=== PATIENT | female | born 1960 | race Caucasian/White ===

== ENCOUNTER 2016-05-22 13:20 | Emergency (ER) | payer MEDICARE, OTHER ==
[~2016-05-22] VITALS: Ht 152.4 cm; Wt 72.5 kg
[~2016-05-22 13:20] MED LIST: ASPI-664 PO; ESCI10TA48 PO; SMV40T PO
[2016-05-22 13:30] VITALS: Ht 152.4 cm; Wt 72.5 kg
[2016-05-22] MEDS ORDERED: METOCLOPRAMIDE 10 MG INJ IV STA (13:57)
[2016-05-22] MEDS ORDERED: DIPHENHYDRAMINE 50 MG INJ IV STA (13:57)
[2016-05-22] MEDS ORDERED: HYDROmorphONE 1 MG/ML SYG IV STA (13:57)
[2016-05-22 14:43] LABS: ADD SCAN DIFF NO
[2016-05-22 14:50] LABS: BASOPHILS % 0.3 % (0.0-2.0); EOSINOPHILS # 0.6 10^3/ul (0.0-0.5); EOSINOPHILS % 5.6 % (0.0-7.0); HEMATOCRIT 39.2 % (37.0-47.0); HEMOGLOBIN 13.6 g/dl (12.0-16.0); LYMPHOCYTES % 39.7 % (15.0-51.0); MEAN CORPUSCULAR HEMOGLOBIN 32.1 pg (29.0-33.0); MEAN CORPUSCULAR HGB CONC 34.7 g/dl (32.0-37.0); MEAN CORPUSCULAR VOLUME 92.5 fl (82.0-101.0); MEAN PLATELET VOLUME 11.8 fl (7.4-10.4); MONOCYTES % 9.5 % (0.0-11.0); NEUTROPHIL # 4.5 10^3/ul (1.6-7.5); NEUTROPHILS % 44.7 % (39.0-77.0); PLATELET COUNT 212 10^3/UL (140-415); RED BLOOD COUNT 4.24 10^6/ul (4.20-5.40); RED CELL DISTRIBUTION WIDTH 12.2 % (11.5-14.5)
--- NOTE | 2016-05-22 14:52 | RADRPT ---
PROCEDURE: CT Brain without contrast. CLINICAL INDICATION: Headache. History of cerebrovascular accident in the year 2011. TECHNIQUE: A CT of the brain without contrast was performed utilizing axial sections from the skul l base through the vertex. The patient was scanned without intravenous contrast enhancement. Sagitta l and coronal reformatted images were obtained using the data from the axial images. Total exam DLP is 730.20 mGy-cm. CTDIvol is 44.68 mGy. One or more of the following dose reduction techniques we re used: Automated exposure control, adjustment of the mA and/or kV according to patient size, use o f iterative reconstruction technique. COMPARISON: None available FINDINGS: There is an old infarct with encephalomalacia in the left temporal lobe anteriorly extending into th e left parietal lobe and left posterior frontal lobe consistent with an old left middle cerebral art kayley infarct. There is ex vacuo enlargement of the left lateral ventricle. There is no evidence of recent infarct. The laurent and white matter differentiation is otherwise normal. The ventricles are otherwise unremarkable. There is no midline shift. There is no intracranial hemorrhage or space-occupying lesion. There is no skull fracture or lytic lesion. IMPRESSION: 1. 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 2. Ex vacuo enlargement of the left lateral ventricle. 3. No recent infarct or intracranial hemorrhage. 4. Otherwise unremarkable noncontrast CT scan of the brain. RPTAT: QQ .Jonathan Bergman MD, Date Time Electronically viewed and signed by .Jonathan Bergman MD, on 05/22/2016 14:51 .R/
[2016-05-22 15:11] LABS: POTASSIUM 4.2 mmol/L (3.5-5.1)
[2016-05-22 15:14] LABS: CREATININE 0.62 mg/dl (0.44-1.00)
[2016-05-22] MEDS ORDERED: HYDR-902 PO (15:57)
[2016-05-22] MEDS ORDERED: MECL-77 PO (15:57)
[2016-05-22] MEDS ORDERED: MECLIZINE 12.5 MG TAB PO ONE (16:00)
--- NOTE | 2016-05-22 16:04 | ERD ---
ER Documentation Chief Complaint Date/Time DATE: 05/22/16 TIME: 16:00 Chief Complaint MOONEY vertigo. body pain HPI Female complains of day 3 of off and on vertigo. She says the vertigo is strong and severe has no nausea or vomiting. She also complains of a headache diffuse this morning that she has had many times before in the past with a similar pattern. She does have some phonophobia but no photophobia or fever. Patient says that her whole body hurts. No cough no dysuria. Patient has a prior stroke with right-sided deficits are more than leg. No difficulty swallowing or speaking or visual change no worsening weakness or numbness on the right side, left side is asymptomatic. ROS All systems reviewed and are negative except as per history of present illness. Medications Home Meds Active Scripts Hydrocodone/Acetaminophen ([place] 10-325 Tablet) 1 Each Tablet, 1 TAB PO Q6H Y for PAIN, #20 TAB Prov:MARGARITA PHAM DO 05/22/16 Meclizine Hcl* (Meclizine Hcl*) 25 Mg Tablet, 25 MG PO TID, #30 TAB Prov:MARGARITA PHAM DO 05/22/16 Reported Medications Aspirin* (Aspirin* (EC)) 81 Mg Tablet.dr, 81 MG PO DAILY, TAB 06/03/14 Discontinued Reported Medications Escitalopram Oxalate* (Escitalopram Oxalate*) 10 Mg Tablet, 10 MG PO DAILY, TAB 06/03/14 Simvastatin (Simvastatin) 40 Mg Tablet, 40 MG PO HS, TAB 06/03/14 Allergies Allergies: Coded Allergies: No Known Allergy (Unverified , 05/22/16) PMhx/Soc History of Surgery: Yes (C SECTION) Anesthesia Reaction: No Hx Neurological Disorder: Yes (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) Hx Respiratory Disorders: No Hx Cardiac Disorders: Yes (HIGH CHOL, HTN) Hx Psychiatric Problems: Yes (DEPRESSION, NOT ON MEDS NOW) Hx Miscellaneous Medical Probl: No Hx Alcohol Use: No Hx Substance Use: No Hx Tobacco Use: No Smoking Status: Never smoker FmHx Family History: No coronary disease Physical Exam Vitals Vital Signs Date Time Temp Pulse Resp B/P Pulse Ox O2 Delivery O2 Flow Rate FiO2 05/22/16 13:30 99.0 92 18 180/93 97 Physical Exam Const: Well-developed, well-nourished Head: Atraumatic, normocephalic Eyes: Normal Conjunctiva, PERRLA, EOMI, normal sclera, no nystagmus ENT: Normal External Ears, Nose and Mouth, moist mucus membranes. Neck: Full range of motion. No meningismus, no lymphadenopathy. Resp: Clear to auscultation bilaterally, no wheezing, rhonchi, rales Cardio: Regular rate and rhythm, no murmurs, S1 S2 present Abd: Soft, non tender x 4, non distended. Normal bowel sounds, no guarding or rebound, no pulsitile abdominal masses or bruits Skin: No petechiae or rashes, no ecchymosis , no maculopapular rash Back: No midline or flank tenderness Ext: No cyanosis, or edema, FROM x 4, normal inspection, neurovascularly intact x 4 Neur: Awake and alert, STR 4/5 x 2 , 5/5 on the left, sensation intact x 4, , cerebellum intact Psych: Anxious Result Diagram: 05/22/16 1440 05/22/16 1440 Results 24 hrs Laboratory Tests Test 05/22/16 14:40 Anion Gap 16 Basophils # 0.010^3/ul Basophils % 0.3% Blood Urea Nitrogen 11mg/dl Calcium Level 10.0mg/dl Carbon Dioxide Level 28mmol/L Chloride Level 106mmol/L Creatinine 0.62mg/dl Eosinophils # 0.610^3/ul Eosinophils % 5.6% Glucose Level 86mg/dl Hematocrit 39.2% Hemoglobin 13.6g/dl Lymphocytes # 4.010^3/ul Lymphocytes % 39.7% Mean Corpuscular Hemoglobin 32.1pg Mean Corpuscular Hemoglobin Concent 34.7g/dl Mean Corpuscular Volume 92.5fl Mean Platelet Volume 11.8fl Monocytes # 1.010^3/ul Monocytes % 9.5% Neutrophils # 4.510^3/ul Neutrophils % 44.7% Nucleated Red Blood Cells # 0.010^3/ul Nucleated Red Blood Cells % 0.0/100WBC Platelet Count 23537^3/UL Potassium Level 4.2mmol/L Red Blood Count 4.2410^6/ul Red Cell Distribution Width 12.2% Sodium Level 146mmol/L White Blood Count 10.010^3/ul Current Medications Medications (Trade) Dose Ordered Sig/Wai Route PRN Reason Start Time Stop Time Status Last Admin Dose Admin Metoclopramide HCl (Reglan) 10 mg ONCE STAT IV 05/22/16 13:57 05/22/16 13:58 DC 05/22/16 14:30 Hydromorphone HCl (Dilaudid) 1 mg ONCE STAT IV 05/22/16 13:57 05/22/16 13:58 DC 05/22/16 14:30 Diphenhydramine HCl (Benadryl) 25 mg ONCE STAT IV 05/22/16 13:57 05/22/16 13:58 DC 05/22/16 14:30 Meclizine HCl (Antivert) 25 mg ONCE ONCE PO 05/22/16 16:00 05/22/16 16:01 Procedures/MDM PROCEDURE: CT Brain without contrast. CLINICAL INDICATION: Headache. History of cerebrovascular accident in the year 2011. TECHNIQUE: A CT of the brain without contrast was performed utilizing axial sections from the skull base through the vertex. The patient was scanned without intravenous contrast enhancement. Sagittal and coronal reformatted images were obtained using the data from the axial images. Total exam DLP is 730.20 mGy-cm. CTDIvol is 44.68 mGy. One or more of the following dose reduction techniques were used: Automated exposure control, adjustment of the mA and/or kV according to patient size, use of iterative reconstruction technique. COMPARISON: None available FINDINGS: There is an old infarct with encephalomalacia in the left temporal lobe anteriorly extending into the left parietal lobe and left posterior frontal lobe consistent with an old left middle cerebral artery infarct. There is ex vacuo enlargement of the left lateral ventricle. There is no evidence of recent infarct. The laurent and white matter differentiation is otherwise normal. The ventricles are otherwise unremarkable. There is no midline shift. There is no intracranial hemorrhage or space-occupying lesion. There is no skull fracture or lytic lesion. IMPRESSION: 1. 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 2. Ex vacuo enlargement of the left lateral ventricle. 3. No recent infarct or intracranial hemorrhage. 4. Otherwise unremarkable noncontrast CT scan of the brain. RPTAT: QQ .Jonathan Bergman MD, MD Date Time Electronically viewed and signed by .Jonathan Bergman MD, on 05/22/2016 14:51 .R/ CC: MARGARITA PHAM DO After IV meds given the patient has no headache. I feel her vertigo is peripheral in nature. Patient does seem quite anxious and seems very hyper aware of her stroke symptoms that she had in the past and is worried about that again. She gets tearful when she talks about her symptoms gets a bit anxious. They are asking me for some stronger pain medication will provide some Antivert Departure Diagnosis: Primary Impression: Headache Headache type: unspecified Headache chronicity pattern: unspecified pattern Intractability: not intractable Qualified Code: R51 - Nonintractable headache, unspecified chronicity pattern, unspecified headache type Additional Impressions: Myalgia Vertigo Condition: Stable Patient Instructions: Self-Care for Headaches, Vertigo, Unspecified Referrals: CARLOS MARTINEZ MD, APOSTOLOS A. DO May 22, 2016 16:04
[2016-05-22 16:17] VITALS: BP 118/77; PULSE 69; RESP 18
== END 2016-05-22 16:19 | disposition home or self-care (01) ==
LOC: E/R 13:20
DX: R51 Headache (principal); M79.1 Myalgia; R42 Dizziness and giddiness; I10 Essential (primary) hypertension; Z79.82 Long term (current) use of aspirin
CPT/HCPCS: 70450; 80048; 85025; 96374; 96375; 99285; J1170; J1200; J2765